=== PATIENT | female | born 1985 | race Caucasian/White ===

== ENCOUNTER 2018-02-04 07:36 | Emergency (ER) | payer OTHER ==
[2018-02-04 08:17] LABS: BILIRUBIN,URINE NEG (NEG); CLARITY,URINE BLOODY; COLOR,URINE RED; GLUCOSE,URINE NEG (NEG); NITRITE,URINE NEG (NEG); UROBILINOGEN,URINE 0.2 mg/dL (0.2 mg/dL)
[2018-02-04 08:18] LABS: BACTERIA,URINE MOD /HPF (0-FEW); RBC,URINE >40 /HPF (0-2); SQUAMOUS EPITHELIAL CELL,UR OCC /LPF; U PREG PATIENT POSITIVE (NEG); WBC,URINE >40 /HPF (0-4)
--- NOTE | 2018-02-04 08:24 | PHYS DOC ---
Adult General Chief Complaint Chief Complaint: PAIN ON URINATION [facility] HPI 32-year-old female presents with dysuria and urinary frequency for 2 days. Today it is worse than yesterday. Patient has a history of frequent UTIs. She is also on fertility treatments and has been told that this suppresses her immune system. Patient has not had a fever or chills at home. She denies nausea , vomiting, diarrhea patient. She has no other complaints. Review of Systems Review of Systems Constitutional: Denies fever or chills [] Eyes: Denies change in visual acuity, redness, or eye pain [] HENT: Denies nasal congestion or sore throat [] Respiratory: Denies cough or shortness of breath [] Cardiovascular: No additional information not addressed in HPI [] GI: Denies abdominal pain, nausea, vomiting, bloody stools or diarrhea [] : Dysuria and hematuria [] Musculoskeletal: Denies back pain or joint pain [] Integument: Denies rash or skin lesions [] Neurologic: Denies headache, focal weakness or sensory changes [] Endocrine: Denies polyuria or polydipsia [] All other systems were reviewed and found to be within normal limits, except as documented in this note. Allergies Allergies Allergies Coded Allergies Type Severity Reaction Last Updated Verified No Known Drug Allergies 02/04/18 No Physical Exam Physical Exam Constitutional: Well developed, well nourished, no acute distress, non-toxic appearance. [] HENT: Normocephalic, atraumatic, bilateral external ears normal, oropharynx moist, no oral exudates, nose normal. [] Eyes: PERRLA, EOMI, conjunctiva normal, no discharge. [] Neck: Normal range of motion, no tenderness, supple, no stridor. [] Cardiovascular:Heart rate regular rhythm, no murmur [] Lungs & Thorax: Bilateral breath sounds clear to auscultation [] Abdomen: Suprapubic abdominal tenderness[] Skin: Warm, dry, no erythema, no rash. [] Back: No tenderness, no CVA tenderness. [] Extremities: No tenderness, no cyanosis, no clubbing, ROM intact, no edema. [] Neurologic: Alert and oriented X 3, normal motor function, normal sensory function, no focal deficits noted. [] Psychologic: Affect normal, judgement normal, mood normal. [] Current Patient Data Lab Results Laboratory Tests Test 9/20/18 07:50 Urine Collection Type Unknown Urine Color Red Urine Clarity Bloody Urine pH 6.5 Urine Specific [place] 1.020 Urine Protein 30 mg/dl (NEG-TRACE) Urine Glucose (UA) Neg mg/dL (NEG) Urine Ketones (Stick) Neg mg/dL (NEG) Urine Blood Large (NEG) Urine Nitrite Neg (NEG) Urine Bilirubin Neg (NEG) Urine Urobilinogen Dipstick 0.2 mg/dL (0.2 mg/dL) Urine Leukocyte Esterase Large (NEG) Urine RBC >40 /HPF (0-2) Urine WBC >40 /HPF (0-4) Urine Squamous Epithelial Cells Occ /LPF Urine Bacteria Mod /HPF (0-FEW) Urine Test Positive (NEG) EKG EKG [] Radiology/Procedures Radiology/Procedures [] Course & Med Decision Making Course & Med Decision Making Pertinent Labs and Imaging studies reviewed. (See chart for details) The patient's urinalysis is significant for UTI. I will treat her with Macrobid twice a day for 7 days. Her urine is positive. In discussions with the patient, this is likely just due to her fertility treatments as she just got an hCG injection. We'll continue to follow this with her fertility physician. She is stable for discharge at this time. [] Dragon Disclaimer Dragon Disclaimer This electronic medical record was generated, in whole or in part, using a voice recognition dictation system. Departure Departure: Referrals: IWONA OLIVIER MD (PCP) Scripts Phenazopyridine Hcl (PYRIDIUM) 100 Mg Tablet 100 MG PO TID PRN for URINARY PAIN, #30 TAB Prov: SABI AGOSTO DO 02/04/18 Nitrofurantoin Monohyd/M-Cryst (MACROBID 100 MG CAPSULE) 100 Mg Capsule 1 CAP PO BID, #14 CAP Prov: SABI AGOSTO DO 02/04/18 SABI AGOSTO DO Feb 04, 2018 08:24
[2018-02-04] MEDS ORDERED: NITR100C62 PO (08:27)
[2018-02-04] MEDS ORDERED: PHEN100T82 PO (08:27)
[2018-02-04 08:32] VITALS: BP 114/65
== END 2018-02-04 08:32 | disposition home or self-care (01) ==
LOC: ER 07:36
DX: N39.0 Urinary tract infection, site not specified (principal)
CPT/HCPCS: 81001; 81025; 87086; 87186; 99284

== ENCOUNTER 2018-05-20 07:31 | Emergency (ER) | payer OTHER ==
[~2018-05-20] VITALS: Ht 167.6 cm; Wt 54.4 kg
[~2018-05-20 07:31] MED LIST: NITR100C62 PO; PHEN100T82 PO
[2018-05-20 07:35] VITALS: BP 107/59
[2018-05-20] MEDS ORDERED: CEPH-263 PO (08:20)
--- NOTE | 2018-05-20 08:20 | PHYS DOC ---
Past History Past Medical History: Anxiety, Depression Past Surgical History: No Surgical History Smoking: Non-smoker Alcohol Use: Occasionally Drug Use: None Adult General Chief Complaint Chief Complaint: PAIN ON URINATION HPI HPI This is a pleasant 32-year-old female presenting to the emergency department today with dysuria for 2 days. She took Bactrim yesterday with mild relief but she reports her symptoms got worse this morning. It is a burning sensation is nonradiating intermittent and without alleviating factors in the suprapubic region. It is worse when she urinates. She denies fevers chills. She is currently trying to get . Review of systems is negative for chest pain shortness of breath fevers or chills. All other review of systems is negative unless otherwise noted in history of present illness. ED course: 32-year-old female presenting with UTI. Vitals are unremarkable she is well-appearing with soft and nontender abdomen. Given her currently trying to get we will use Keflex. Review of her previous urine culture shows sensitivity to cephalosporins. Follow-up in one to 2 days. I will order a urine culture.The patient has been examined and was not found to have an emergency medical condition. The patient was then discharged home in stable condition to follow up with their primary care physician over the next 1-2 days. They were to return if their symptoms worsened or if they were concerned for any reason. They were also instructed to return to the emergency department if they were unable to get the recommended and appropriate follow-up. [id number] discharge instructions and return precautions were given. Patient's questions were answered to their satisfaction. Patient is comfortable with plan. Review of Systems Review of Systems SEE ABOVE. Allergies Allergies Allergies Coded Allergies Type Severity Reaction Last Updated Verified No Known Drug Allergies 02/04/18 No Physical Exam Physical Exam SEE ABOVE Constitutional: Well developed, well nourished, no acute distress, non-toxic appearance. HENT: Normocephalic, atraumatic, bilateral external ears normal, oropharynx moist, no oral exudates, nose normal. [] Eyes: PERRLA, EOMI, conjunctiva normal, no discharge. [] Neck: Normal range of motion, no tenderness, supple, no stridor. Cardiovascular:Heart rate regular rhythm, no murmur Lungs & Thorax: Bilateral breath sounds clear to auscultation [] Abdomen: Bowel sounds normal, soft, no tenderness, no masses, no pulsatile masses. [] Skin: Warm, dry, no erythema, no rash. Back: No tenderness, no CVA tenderness. [] Extremities: No tenderness, no cyanosis, no clubbing, ROM intact, no edema. Neurologic: Alert and oriented X 3, normal motor function, normal sensory function, no focal deficits noted. [] Psychologic: Affect normal, judgement normal, mood normal. [] Current Patient Data Vital Signs Vital Signs Date Time Temp Pulse Resp B/P (MAP) Pulse Ox O2 Delivery O2 Flow Rate FiO2 05/20/18 07:35 97.1 72 22 99 Room Air Lab Results Laboratory Tests Test 05/20/18 08:10 POC Urine HCG, Qualitative hcg negative (Negative) EKG EKG [] Radiology/Procedures Radiology/Procedures [] Course & Med Decision Making Course & Med Decision Making Pertinent Labs and Imaging studies reviewed. (See chart for details) [] Dragon Disclaimer Dragon Disclaimer This electronic medical record was generated, in whole or in part, using a voice recognition dictation system. Departure Departure: Impression: Primary Impression: UTI (urinary tract infection) Disposition: HOME, SELF-CARE Condition: STABLE Referrals: IWONA OLIVIER MD (PCP) Patient Instructions: Urinary Tract Infection Additional Instructions: Thank you for allowing us to participate in your care today. Return to the emergency department you have any new or worsening symptoms, or if you are concerned for any reason. Return to emergency department if you have any new or concerning symptoms including but not limited to fever, chills, nausea, vomiting, intractable pain, any new rashes, chest pain, shortness of air , uncontrolled bleeding, difficulty breathing, and/or vision loss. Follow up with your primary care physician within 1-2 days. Call your Primary Doctor tomorrow and inform them of your visit today. If you do not have a primary care provider we are happy to provide you with a list of our primary care providers contact information. This condition should be evaluated by your primary care physician and any recommended consulting services for continued management within 2 days after discharge. If at any time, you are having difficulty getting into your primary care doctor or a specialist, return to the emergency department. Scripts Cephalexin (KEFLEX) 250 Mg Capsule 1 CAP PO QID for UTI for 5 Days, #20 CAP 0 Refills Prov: CLAIRE BUNN MD 05/20/18 CLAIRE BUNN MD May 20, 2018 08:20
[2018-05-20] MEDS ORDERED: HYDR-2155 PO (08:28)
[2018-05-20 09:03] LABS: BILIRUBIN,URINE NEG (NEG); CLARITY,URINE TURBID; COLOR,URINE BROWN; GLUCOSE,URINE NEG (NEG); NITRITE,URINE POS (NEG); UROBILINOGEN,URINE 0.2 mg/dL (0.2 mg/dL)
== END 2018-05-20 08:42 | disposition home or self-care (01) ==
LOC: ER 07:31
DX: N39.0 Urinary tract infection, site not specified (principal); F41.9 Anxiety disorder, unspecified; F32.9 Major depressive disorder, single episode, unspecified
CPT/HCPCS: 81003; 81025; 87086; 99283